=== PATIENT | female | born 1980 | race Hispanic/Latino ===

== ENCOUNTER 2021-07-28 12:02 | Emergency (ER) | payer BC ==
[~2021-07-28] VITALS: Ht 162.6 cm; Wt 104.3 kg
[2021-07-28] MEDS ORDERED: SODIUM CHLORIDE 0.9% 1000ML 1,000 ML IV STA (12:22)
[2021-07-28] MEDS ORDERED: ONDANSETRON HCL INJ 2MG/ML 2ML 2 MG/ML VIAL IV PRN (12:30)
[2021-07-28 12:39] LABS: BASOPHILS % 0.3 % (0.0-1.0); EOSINOPHILS # (AUTO) 0.2 (0.0-0.4); EOSINOPHILS % 2.4 % (0.0-6.0); HEMATOCRIT 41.7 % (34.2-44.1); HEMOGLOBIN 13.9 g/dL (12.0-16.0); LYMPHOCYTES # (AUTO) 2.3 (1.0-3.2); LYMPHOCYTES % 26.4 % (18.0-39.1); MEAN CORPUSCULAR HGB CONC 33.3 g/dL (31-35); MEAN CORPUSCULAR VOLUME 89.9 fL (81-99); MONOCYTES # (AUTO) 0.5 (0.2-0.8); MONOCYTES % 6.1 % (4.4-11.3); NEUTROPHILS # (AUTO) 5.6 (2.1-6.9); NEUTROPHILS % 64.3 % (38.7-80.0); PLATELET COUNT 257 x10e3/uL (140-360); RED BLOOD COUNT 4.64 x10e6/uL (3.6-5.1); RED CELL DISTRIBUTION WIDTH 13.2 % (11.7-14.4)
[2021-07-28 13:00] LABS: ALBUMIN 4.1 g/dL (3.5-5.0); ALBUMIN/GLOBULIN RATIO 1.2 (0.8-2.0); ANION GAP 9.8 mmol/L (8-16); CALCIUM 9.7 mg/dL (8.4-10.2); CREATININE, SERUM 0.79 mg/dL (0.57-1.11); POTASSIUM 3.8 mmol/L (3.5-5.1)
[2021-07-28] MEDS ORDERED: FENTANYL CITRATE/PF 100MCG/2 ML INJ IV PRN (13:00)
[2021-07-28] MEDS ORDERED: SODIUM CHLORIDE 0.9% 50ML 50 ML ONE (13:27)
[2021-07-28] MEDS ORDERED: IOPAMIDOL 370 MG/ML 200 ML INFUS..BTL INJ ONE (13:27)
[2021-07-28] MEDS ORDERED: FENTANYL CITRATE/PF 100MCG/2 ML INJ IV ONE (13:30)
[2021-07-28 15:38] LABS: CLARITY,URINE CLEAR (CLEAR); COLOR,URINE YELLOW (YELLOW); KETONES,URINE NEGATIVE (NEGATIVE); LEUKOCYTE ESTERASE ,URINE NEGATIVE (NEGATIVE); NITRITE,URINE NEGATIVE (NEGATIVE); PROTEIN,URINE DIPSTICK NEGATIVE (NEGATIVE); URINE UROBILINOGEN 0.2 mg/dL (0.2 - 1)
[2021-07-28 15:40] LABS: RBC,URINE 0-5 /HPF (0-5)
[2021-07-28 15:41] LABS: EPITHELIAL CELLS,URINE MODERATE /LPF; WBC,URINE (MAN) 0-5 /HPF (0-5)
[2021-07-28 16:07] VITALS: BP 125/85
== END 2021-07-28 16:08 | disposition home or self-care (01) ==
LOC: ER 12:24
DX: R10.31 Right lower quadrant pain (principal); N20.0 Calculus of kidney; K21.9 Gastro-esophageal reflux disease without esophagitis
CPT/HCPCS: 36415; 74177; 80053; 81001; 83690; 84702; 85025; 99283; J2405; J3010; J7030; Q9967

== ENCOUNTER 2021-10-24 13:24 | Emergency (ER) | payer BC ==
[~2021-10-24] VITALS: Ht 162.6 cm; Wt 104.0 kg
[2021-10-24] MEDS ORDERED: HYDROCODONE/APAP 5MG-325MG TAB PO STA (13:57)
[2021-10-24] MEDS ORDERED: ULTRAM 50MG50 MG PO (13:59)
[2021-10-24] MEDS ORDERED: ACETAMINOPHEN-1 EAC4 PO (14:13)
[2021-10-24] MEDS ORDERED: HYDROCODONE/APAP 5MG-325MG TAB ONE (14:13)
== END 2021-10-24 14:16 | disposition home or self-care (01) ==
LOC: FSED 13:28
DX: L02.211 Cutaneous abscess of abdominal wall (principal); R11.2 Nausea with vomiting, unspecified; K21.9 Gastro-esophageal reflux disease without esophagitis
CPT/HCPCS: 10060; 99283